=== PATIENT | male | born 1955 | race Two or more races ===

== ENCOUNTER → 2024-02-18 | Outpatient (REF) | payer MEDICARE | LOC: M SFHCADAM 10:02 | PROVIDERS: ATTEND Physician Assistant | DX: L40.0 Psoriasis vulgaris (principal) ==

== ENCOUNTER → 2025-02-23 | Outpatient (REF) | payer MEDICARE | LOC: M SFHCADAM 12:43 | PROVIDERS: ATTEND Physician Assistant | DX: Z79.899 Other long term (current) drug therapy (principal) ==